=== PATIENT | male | born 1950 | race Caucasian/White ===

== ENCOUNTER 2024-04-05 10:49 | Inpatient (IN) | payer MEDICARE, SELFPAY ==
[2024-04-05] VITALS (10 sets, daily range): BP systolic 108–144; BP diastolic 71–97
[2024-04-05 08:27] LABS: Glucose - Point of Care 143 mg/dl (70-99)
--- NOTE | 2024-04-05 08:43 | ED.GENMED ---
History of Present Illness
General
Chief Complaint: Airway Problem
Source: patient and ambulance crew
Exam Limitations: clinical condition and altered mental status
Time Seen by Provider: 04/05/24 08:39
Nursing documentation reviewed up to this point in time: agreed with
History of Present Illness
History of Present Illness:
74 male presents with presumed polypharmacy overdose apparently was found confused by his obtunded EMS was called empty bottles next to him apparently was awake enough to tell his that he took all the pills, there beta-blockers, doxepin,
other empty pill bottles when I evaluated the patient he was obtunded, breathing 4-6 times, pulse ox 76% on room air with dried vomit around his mouth, how long he was on the ground for or when he could have taken the pills
Per pharmacy calculations of missing pills and when he filled the bottles patient possibly took #57 1 mg clonazepam, 50 mg #222 metoprolol ER, clonidine 0.1 mg #40 to #50 tablets, doxepin 25 mg approximately #90
Past History
Past History
ED Past Medical History: HTN, Hypercholesterolemia, Psychiatric (Rajiv. depression, posttraumatic stress disorder), Other (Herniated lumbar disc, obstructive sleep apnea) and Other (Recurrent syncope related to orthostatic hypotension.)
ED Past Surgical History: Cardiac (Pacemaker for bradycardia)
Social History
Tobacco: Non-smoker
Alcohol: None
Personal:
Living: with family
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
Family History
Family History: Hypertension
Review of Systems
Review of Systems
Other source history: ambulance crew
All Other Systems: Not applicable
Psychiatric: Reports suicidal (? Presumed)
Phy Exam
Physical Exam
Physical Exam:
Physical Exam
General: Obtunded elderly male shallow respirations dried vomit around his mouth
Neck: No tongue bite no airway obstruction
Heart: Rate
Lungs: Rhonchi on the left
Abdomen: Soft
Neuro: Nonverbal minimally responsive pupils 2 mm OU
Skin: no rash
Psychiatric: Unable to
Extremities: Cyanosis is.
Course
Orders/Labs/Results
Orders:
Orders
04/05/24 08:31
Sodium Bicarbonate 50 meq .ROUTE .STK-MED ONE
04/05/24 08:33
Propofol 1,000,000 Mcg/100 ml [Diprivan] 1,000,000 mcg in 100 ml .ROUTE .STK-MED
04/05/24 08:39
Propofol 1,000,000 Mcg/100 ml [Diprivan] 1,000,000 mcg in 100 ml IV NOW
Indication:: Light Sedation
Begin Infusion:: Now
Goal:: RASS 0 to -2
Maximum dose in mcg/kg/min:: 50
Initial dose based on RASS:: Yes
If RASS is:: +1 or pt hemodynamically unstable (SBP < 90mmHg), initiate at 10 mcg/kg/min
If RASS is:: +2, initiate at 20 mcg/kg/min
If RASS is:: greater than or equal to +3, initiate at 30 mcg/kg/min
Titration Instructions:: Titrate by 5-10 mcg/kg/min every 5 minutes until RASS 0 to -2 achieved.
Taper Instructions:: If RASS is at or below goal for 4 consecutive hours decrease infusion by
Taper Instructions:: 5-10 mcg/kg/min every 2 hours to off.
Over-sedation Instructions:: If CPOT 0-2 (at goal) AND RASS -3 to -5 (below goal) decrease sedative by
Over-sedation Instructions:: 50% first. If pain score remains at goal and RASS remains below goal in
Over-sedation Instructions:: 1 hour, decrease opioid infusion by 50%.
Notify provider:: immediately if patient exhibits signs/symptoms of propofol-related
Notify provider:: infusion syndrome.
Additional Instructions:: Patient MUST be mechanically ventilated and MUST receive analgesia.
CR Chest Portable - 1 View Urgent
Comment:
Reason For Exam: tube
Reason Study Needs to be Portable: Unable to Transport
04/05/24 08:40
Electrocardiogram (*1) Urgent
Reason for Study: QTc Monitoring
Bedside Glucose- Treatment ONCE
EKG- Treatment ONCE
Restraints - Non Violent As Directed
Justification-Patient:: 1-Attempts to remove tube
Restraint Type-: Soft Limb-4 point/4 rails
Apply From (date): 04/05/24
Apply from (time): 08:40
Remove (date): 04/06/24
Remove (time): 23:59
04/05/24 08:41
Lobo Placement- Treatment ONCE
Reason for insertion: I&O's Critical Care
Sodium Bicarbonate 50 meq IV NOW STA
04/05/24 08:[address] Non Medication Order As Directed
Physician Order: ngt or ogt thanks
Above order entered?: Yes
04/05/24 08:43
CT Head W/o Iv Contrast Urgent
Comment:
Reason For Exam: od anoxia
Ventilator Initial Settings [RESP] Urgent
04/05/24 08:45
CT Cervical Spine W/o Iv Contr Urgent
Comment:
Reason For Exam: found down
04/05/24 08:52
ABG [Arterial Blood Gas] Urgent
%Oxygen/Room Air: 100
Acetaminophen Urgent
Alcohol Urgent
Complete Blood Count/With Diff Urgent
Comprehensive Metabolic Panel Urgent
Creatine Phosphokinase Routine
Salicylate Urgent
Triglycerides Routine
Comment: baseline levels with propofol infusion
04/05/24 09:04
Charcoal/Sorbitol Solution [Actidose with Sorbitol] 25 grams PO NOW STA
04/05/24 09:15
Sterile Water For Inj [Sterile Water For Injection 1000 ml] 1,000 ml Sodium Bicarbonate 150 meq IV 200 mls/hr
04/05/24 09:27
Urine Drug Abuse Screen Urgent
Date Specimen was Collected: 04/05/24
Time Specimen was Collected: 08:51
04/05/24 09:30
Sterile Water For Inj [Sterile Water For Injection 1000 ml] 1,000 ml Sodium Bicarbonate 150 meq IV 200 mls/hr
04/05/24 09:37
Warm [Thermal Regulation-Treatment] ONCE
Mode:: Automatic
Type of thermoregulation:: Heating
PATIENT'S Goal Temperature:: 96.8 F (36 C)
Comments/Additional Instructions:: Temperature and skin assessment per unit protocol
04/05/24 09:55
CR Chest Portable - 1 View Urgent
Comment:
Reason For Exam: ngtg placement
Reason Study Needs to be Portable: Patient Unstable
04/05/24 Lunch
NPO
Allow oral meds: No
Allow clear liquids: No
04/05/24 10:25
Comprehensive Metabolic Panel Urgent
Magnesium Urgent
04/05/24 10:33
Admit/Transfer Patient As Directed
Co-Sign Provider:
Level of Care: Inpatient admission
Assign to:: ICU
Physician / Group: Vilma Hester - Hospitalists
Diagnosis: VDRF, drug overdose, ERIC
Reason for Hospitalization: Acute pharmaceutical drug overdose (Doxepin, Metoprolol, clonazepam, clonidine)
ERIC with rhabdomyolysis from prolonged immobility, possibly drug induced
rhabdomyolysis
Obtunded presentation, respiratory depression, leading to VDRF
Expected length of stay greater than two midnights?: Yes
ELOS- Estimated Length of Stay in days: 3
I certify the patient meets the requirements for IP care: Yes
PRN Pain Medication Management As Directed
May give lesser potent ordered pain med per pt: Yes
preference::
Protocol:: Medication orders for pain may be administered in a
manner that supports deferring to patient preference
when the pt is:
- Requesting an ordered lesser potent pain medication.
Least to most potent pain medications are defined
as: acetaminophen < NSAID < tramadol < opioids
(morphine, oxycodone, hydromorphone).
- Requesting a lesser dose of the same medication IF
ORDERED.
- Requesting a less intrusive route of administration
if both routes are prescribed by the provider (PO <
IV).
04/05/24 10:34
Code Status As Directed
Resuscitation Status: Full Code
04/05/24 11:06
CMP [Comprehensive Metabolic Panel] Q2H
Magnesium Q2H
Venous Blood Gas Q2H
%Oxygen/Room Air: fio2 40%, vented
04/05/24 11:06
Consult Outpatient Therapist [Outpatient Therapist Consult] Routine
Consulting Provider: Mando Dent
Was physician already notified: Yes
Bisacodyl [Dulcolax] 10 mg RECTAL [id number] PRN
Dextrose 5%/Water 1000 ml [D5w] 1,000 ml Sodium Bicarbonate 150 meq IV 100 mls/hr
Docusate W/Senna [Senokot-S] 1 tablet PO BIDPRN PRN
Polyethylene Glycol Powder [Miralax] 17 grams PO DAILYPRN PRN
Activity As Directed
Activity Level: As Tolerated
Intake/ Output As Directed
Frequency: q12h
Pneumatic Compression Sleeves As Directed
Type: Knee high
Vital Signs As Directed
Frequency: Per unit guidelines
Weight As Directed
Frequency: Daily
DX Deep Vein Thrombosis Video Routine
04/05/24 13:06
CMP [Comprehensive Metabolic Panel] Q2H
Magnesium Q2H
Venous Blood Gas Q2H
%Oxygen/Room Air: fio2 40%, vented
04/05/24 13:30
CPK [Creatine Phosphokinase] Routine
04/05/24 15:06
CMP [Comprehensive Metabolic Panel] Q2H
Magnesium Q2H
Venous Blood Gas Q2H
%Oxygen/Room Air: fio2 40%, vented
04/05/24 17:06
CMP [Comprehensive Metabolic Panel] Q2H
Magnesium Q2H
Venous Blood Gas Q2H
%Oxygen/Room Air: fio2 40%, vented
04/05/24 19:06
CMP [Comprehensive Metabolic Panel] Q2H
Magnesium Q2H
Venous Blood Gas Q2H
%Oxygen/Room Air: fio2 40%, vented
04/05/24 21:06
CMP [Comprehensive Metabolic Panel] Q2H
Magnesium Q2H
Venous Blood Gas Q2H
%Oxygen/Room Air: fio2 40%, vented
04/05/24 23:06
CMP [Comprehensive Metabolic Panel] Q2H
Magnesium Q2H
Venous Blood Gas Q2H
%Oxygen/Room Air: fio2 40%, vented
04/06/24 01:06
CMP [Comprehensive Metabolic Panel] Q2H
Magnesium Q2H
Venous Blood Gas Q2H
%Oxygen/Room Air: fio2 40%, vented
04/06/24 03:06
CMP [Comprehensive Metabolic Panel] Q2H
Magnesium Q2H
Venous Blood Gas Q2H
%Oxygen/Room Air: fio2 40%, vented
04/06/24 05:06
CMP [Comprehensive Metabolic Panel] Q2H
Magnesium Q2H
Venous Blood Gas Q2H
%Oxygen/Room Air: fio2 40%, vented
04/06/24 06:00
Complete Blood Count/With Diff IN AM
Comprehensive Metabolic Panel IN AM
Creatine Phosphokinase IN AM
Magnesium IN AM
04/07/24 06:00
Complete Blood Count/With Diff IN AM
Comprehensive Metabolic Panel IN AM
Creatine Phosphokinase IN AM
Magnesium IN AM
04/08/24 06:00
Complete Blood Count/With Diff IN AM
Comprehensive Metabolic Panel IN AM
Creatine Phosphokinase IN AM
Magnesium IN AM
Abnormal Lab Results
04/05/24 04/05/24 04/05/24
08:26 08:52 09:27
WBC 12.8 H 10^3/uL
(4.8-10.8)
MCHC 32.8 L g/dL
(33.0-37.0)
RDW 15.7 H %
(11.5-14.5)
Abs Immat Gran (auto) 0.1 H 10^3/uL
(0-0.05)
Absolute Neuts (auto) 10.8 H 10^3/uL
(1.4-6.5)
Absolute Lymphs (auto) 0.7 L 10^3/uL
(1.2-3.4)
Absolute Monos (auto) 1.0 H 10^3/uL
(0.1-0.6)
Immature Gran % 0.7 H %
(0-0.5)
Neutrophils % 85.0 H %
(42.2-75.2)
Lymphocytes % 5.7 L %
(20.5-51.1)
ABG O2 Sat (Measured) 98.7 H %
(94-98)
BUN 22 H mg/dl
(9-20)
Creatinine 1.5 H mg/dL
(0.7-1.3)
Glucose 166 H mg/dl
(70-99)
AST 71 H U/L
(17-59)
Creatine Kinase 1469 H U/L
(55-170)
Salicylates < 1.0 L mg/dl
(2.0-20.0)
Acetaminophen < 10 L ug/ml
(10-30)
Ur Tricyclics Screen Positive H
(Negative)
POC Glucose 143 H mg/dl
(70-99)
04/05/24
10:25
WBC
MCHC
RDW
Abs Immat Gran (auto)
Absolute Neuts (auto)
Absolute Lymphs (auto)
Absolute Monos (auto)
Immature Gran %
Neutrophils %
Lymphocytes %
ABG O2 Sat (Measured)
BUN 24 H mg/dl
(9-20)
Creatinine 1.4 H mg/dL
(0.7-1.3)
Glucose 167 H mg/dl
(70-99)
AST 69 H U/L
(17-59)
Creatine Kinase
Salicylates
Acetaminophen
Ur Tricyclics Screen
POC Glucose
04/05/24 08:52
04/05/24 10:25
Vital Signs
Initial and Last Documented VS:
Initial Vital Signs
Pulse Resp Pulse Ox
70 18 99
04/05/24 08:33 04/05/24 08:33 04/05/24 08:33
Last Documented Vital Signs
Temp Pulse Resp BP Pulse Ox
94.9 F L 61 14 117/76 90
04/05/24 09:56 04/05/24 10:30 04/05/24 10:30 04/05/24 10:30 04/05/24 10:30
Procedures
Intubations
Procedure completed by: francisca
Method of Intubation: curved blade
Tube size (cm): 7.5
Placement confirmed by: auscutation and capnography
Breath sounds after intubation: equal and right greater than left
Intubation complications: no complications
Additional information:
Rapid sequence succinylcholine, premedicated with bicarb due to concern for TCA overdose mild QRS widening on EKG
Other
Indication for procedure:: GI decontamination
Procedure completed by: Francisca
If no, reason: Emergency procedure
Additional Procedure:
16 Irish NG tube placed without difficulty will confirm with x-ray positive air
MDM/Problems Addressed
Differential Diagnosis Includes:
Overdose aspiration occult head trauma rhabdo other
MDM/Problems Addressed:
Mental status change presumed overdose
Chronic conditions affecting care: HTN and Psychiatric illness
Acute Exacerbation and/or Progression of Chronic Illness: HTN and Psychiatric illness
*Radiology
Radiology exam reviewed: preliminary read by ED provider
*Pulse Oximetry
Patient hypoxic: yes
Comment: 76
*EKG
Interpreted by ED Provider?: Yes
Interpretation: normal
Comparison EKG: no comparison EKG present
Heart Rate: 78
Rate: normal
Rhythm: sinus
[place]: normal axis
Ischemia: non-specific ST changes
*Undergraduate Internship Interpretation
Rate: normal
Interpretation: normal
Heart Rate: 78
Rhythm: sinus
*Critical Care Note
Total Time (30-74mins, 75-104mins- exclusive of procedures): 35
Update Note
Update Note:
Update intubated for airway protection, check CT of the head cervical spine for occult trauma will try to confirm with meds he is on supportive care at this time
CRITICAL CARE STATEMENT: A total of 35minutes of critical care time was provided for this patient. This includes management of unstable vital signs, evaluation of the patient at bedside, reviewing the patient's pertinent medical records discussion
with EMS providers and patient's family in addition to discussion with consultants, review of old EKGs and review of pertinent medical records. This time with separate from time utilized to perform the aforementioned documented procedures
NG tube placed by myself
Call to [facility] Poison Control
next bag 150 bicarb in d5w wtih 40 K for next bag to keep 4 above 4, Mag above 2 goal ph 7.45-7.55, goal Na 145-155
q2 labs vbg, cmp
No Activated Charcoal, no WBI
They have accepted for transfer but not beds today
NE/Vasopressin/
if he codes, intralipid-100ml over 1-[address] Cole accepting MD at [facility],
Raquel updated
ED Attending Note
-
Portions of this chart may have been created with voice recognition software.� Occasional wrong word or��sound alike� substitutions may have occurred due to the inherent limitations of voice recognition software.
Discharge Plan
Departure
Patient Disposition: Admit
Date of Disposition: 04/05/24
Time of Disposition: 11:07
Admit to: ICU
Presentation/result/management discussed w/ accepting MD/DO: Hospitalist
Condition: Critical
Covid-19: Not Applicable
Discharge Problem:
Overdose
Interventions
Interventions:
*Risk Screen - Suicide Last Done: 04/05/24 08:33
*General Assessment Last Done: 04/05/24 08:33
*Neglect/Abuse Screening Last Done: 04/05/24 08:33
*ED COVID-19 Vaccine History Last Done: 04/05/24 08:33
*Nursing Disposition Last Done: 04/05/24 09:40
ED- Pulmonary Assessment Last Done: 04/05/24 08:55
[2024-04-05] MEDS: SODIUM BICARBONATE 50 MEQ IV (08:49)
[2024-04-05] MEDS: DIPRIVAN 100 IV (08:50)
--- NOTE | 2024-04-05 08:50 | PHANOTE ---
med rec note- patient comes from home, ems stated patient all of his medication. patient comes in with bottles
venlafaxine er capsules 60 capsules of 150mg filled on 04/03/24
empty bottles of clonazpem 1mg filled 03/31/24 and 03/29/24 each should of had 30 tablets only 3 tablets in one bottle consumed 57 tablets
empty bottle doxepin 25mg daily filled 12/15/23 for 90 capsules
empty clonidine 0.1mg bid filled 03/10/24 for 180 tablets consumed about 48-50 tablets.
empty toprol xl 50mg tid filled 03/21/24 for 270 tablets consumed 222 tablets
[2024-04-05 09:07] LABS: % Basophils 0.2 % (0-2); % Eosinophils 0.3 % (0-6); % Immature Granulocytes 0.7 % (0-0.5); % Lymphocytes 5.7 % (20.5-51.1); % Monocytes 8.1 % (1.7-9.3); Absolute Immature Granulocytes 0.1 10^3/uL (0-0.05); Absolute Lymphocytes 0.7 10^3/uL (1.2-3.4); Absolute Neutrophils 10.8 10^3/uL (1.4-6.5); Hematocrit 41.5 % (39.0-52.0); Hemoglobin 13.6 g/dL (13.0-18.0); Mean Corp Hgb Conc. 32.8 g/dL (33.0-37.0); Mean Corpuscular Hgb 27.6 pg (27.0-31.0); Mean Corpuscular Volume 84.2 fL (80.0-94.0); Nucleated Red Blood Cells % 0 % (-); Red Blood Cell Count 4.93 10^6/uL (4.70-6.10); Red Cell Dist. Width 15.7 % (11.5-14.5); White Blood Cell Count 12.8 10^3/uL (4.8-10.8)
[2024-04-05 09:08] LABS: B.E. -1.8 mmol/L; HCO3 23.7 mmol/L (21-28); O2 Saturation % 98.7 % (94-98); PCO2 42 mmHg (35-48); PO2 102 mmHg (83-108); pH 7.36 (7.35-7.45)
[2024-04-05 09:16] LABS: ALT (SGPT) 38 U/L (0-50); AST (SGOT) 71 U/L (17-59); Acetaminophen < 10 ug/ml (10-30); Albumin 4.1 g/dl (3.5-5.0); Alkaline Phosphatase 59 U/L (38-126); Blood Urea Nitrogen 22 mg/dl (9-20); Calcium 9.5 mg/dl (8.4-10.2); Carbon Dioxide 22 mmol/L (22-30); Chloride 105 mmol/L (98-107); Creatine Phosphokinase 1469 U/L (55-170); Glucose 166 mg/dl (70-99); Potassium 4.1 mmol/L (3.5-5.1); Salicylate < 1.0 mg/dl (2.0-20.0); Sodium 138 mmol/L (135-145); Total Bilirubin 1.3 mg/dl (0.2-1.3); Total Protein 6.6 g/dl (6.3-8.2); Triglycerides 132 mg/dl (10-149); eGFR 49.16
[2024-04-05 09:19] LABS: Alcohol None Detected
[2024-04-05] MEDS: SODIUM BICARBONATE 1150 MEQ IV ×2 (09:29→09:32)
--- NOTE | 2024-04-05 10:12 | HPS.HSE ---
Family Physician
-
Family Physician: NO INTERVIEW UNKNOWN
Chief Complaint
-
pharmaceutical drug overdose
History of Present Illness
74 y/o M hx of HTN, HLD, psychiatric history including major depression, PTSD, KYLER, orthostasis brought in my EMS for obtunded state. He was found confused by his and empty bottles were noticed nearby. He was awake at that time to tell he
overdose on Clonazepam, Metoprolol, Clonidine and Doxepin (reported ~60 tabs, 200 tabs, 40 tabs, 90 tabs of each pill respectively per pharmacy calculations). In ER, patient obtunded with shallow depressed breathing and hypoxia to 76% with dry vomit
around his mouth. He was intubated immediately.
[facility] poison control was contacted and recommended bicarb IVF, maintain K and mag levels, pH ph 7.45-7.55, goal Na 145-155 and to monitor labs serially q2h (VBG, CMP). They did not recommend whole bowel irrigation or charcoal
They also stated if patient were to CODE use intralipid 100 ML and for pressors use NE or Vasopressin.
Medical History
Past Medical History
Past Medical History: Reports Other (HTN, HLD, psychiatric history including major depression, PTSD, KYLER, orthostasis)
Past Surgical History: Reports Other (Pacemaker for bradycardia)
Social History
Tobacco: Non-smoker
Alcohol: None
Personal:
Living: With Family
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
Family History
Family History: Not pertinent
Allergies / Home Medications
Allergies reflects when Allergies were last updated in [employer].
Home Medications with original date entered in [employer]
Allergy/Medication List:
Allergies
Allergy/AdvReac Type Severity Reaction Status Date / Time
No Known Allergies Allergy Verified 02/21/14 05:12
Home Medications
metoprolol succinate 25 mg tablet,extended release 24 hr (Toprol XL) 100 mg PO QPM 02/21/14
amlodipine 10 mg tablet (Norvasc) 10 mg PO DAILY 04/05/24
atorvastatin 80 mg tablet (Lipitor) 80 mg PO QPM 04/05/24
clonazepam 1 mg tablet 2 mg PO BIDPRN PRN anxiety 04/05/24
clonidine HCl 0.1 mg tablet 0.1 mg PO BID 04/05/24
dapagliflozin propanediol 10 mg tablet (Farxiga) 10 mg PO DAILY 04/05/24
doxepin 25 mg capsule 25 mg PO HS 04/05/24
fenofibrate 160 mg tablet 160 mg PO DAILY 04/05/24
metoprolol succinate 50 mg tablet,extended release 24 hr (Toprol XL) 50 mg PO DAILY 04/05/24
tamsulosin 0.4 mg capsule (Flomax) 0.8 mg PO HS 04/05/24
venlafaxine 150 mg capsule,extended release 24 hr (Effexor XR) 300 mg PO DAILY 04/05/24
Review of Systems
-
Unable to obtain full review of systems at this time due to: Patient Intubation
Physical Exam
Vital Signs
Vital Signs
Temp Pulse Resp BP Pulse Ox
94.9 F L 65 13 108/73 94
04/05/24 09:56 04/05/24 09:45 04/05/24 09:45 04/05/24 09:30 04/05/24 09:45
Physical Exam
General: Intubated
HEENT: NormoCephalic and Anicteric
Respiratory: Clear
Cardiac: S1/S2 and Regular Rhythm
GI: Soft
Neuro: Sedated
Laboratory Results
-
04/05/24 08:52
04/05/24 08:52
Laboratory Results
pH 7.36 (7.35-7.45) 04/05/24 08:52
pCO2 42 mmHg (35-48) 04/05/24 08:52
pO2 102 mmHg (83-108) 04/05/24 08:52
HCO3 23.7 mmol/L (21-28) 04/05/24 08:52
Total Bilirubin 1.3 mg/dl (0.2-1.3) 04/05/24 08:52
AST 71 U/L (17-59) H 04/05/24 08:52
ALT 38 U/L (0-50) 04/05/24 08:52
Alkaline Phosphatase 59 U/L (38-126) 04/05/24 08:52
Data Reviewed
-
Lab Data: Labs Reviewed by me
Impression/Plan
-
Assessment:
Acute pharmaceutical drug overdose (Doxepin, Metoprolol, clonazepam, clonidine)
ERIC with rhabdomyolysis from prolonged immobility, possibly drug induced rhabdomyolysis
Obtunded presentation, respiratory depression, leading to VDRF
Essential HTN
HLD
psychiatric history including major depression, PTSD
YKLER
orthostasis
Plan:
Case discussed with ER Dr Martinez who spoke to [facility] poison control service. Patient accepted in transfer, pending bed availability. Dr. Martinez will provide attending name.
in the interim:
Admit to ICU here with ICU consult
per poison control; start Bicarbonate 150 in D5W with 40 K, keep K and Mag >2. Na goal is 145-155.
serial CMP, Mag and VBG q2h - goal pH 7.45 to 7.55.
repeat CPK this afternoon.
Lobo and monitor urine output.
No role for activated charcoal or whole body irrigation.
if pressors indicated, use Norepi or Vasopressin.
if cardiac arrest, use intralipid-100ml over 1-2 minutes - will have to confirm with pharmacy if available.
all home meds held.
tried to call , phone disconnected.
presumed full code for now pending family discussion.
Total Critical Care Time 90 minutes. I was immediately available to the patient and staff. I personally examined, reviewed labs, diagnostic images/reports, interpretations, treatment plans, discussed patient care with other providers and family
or caregivers (if patient is unable to make decisions), entered orders as appropriate and documented the medical record.
[2024-04-05 10:20] LABS: Amphetamines Negative (Negative); Tricyclic Antidepressants Positive (Negative)
[2024-04-05 10:21] LABS: Barbiturates Negative (Negative); Benzodiazepines Negative (Negative); Buprenorphine Negative (Negative); Cocaine Negative (Negative); Marijuana Negative (Negative); Methadone Negative (Negative); Methamphetamines Negative (Negative); Opiates Negative (Negative); Phencyclidine Negative (Negative)
[2024-04-05 10:56] LABS: ALT (SGPT) 39 U/L (0-50); AST (SGOT) 69 U/L (17-59); Alkaline Phosphatase 50 U/L (38-126); Blood Urea Nitrogen 24 mg/dl (9-20); Calcium 9.4 mg/dl (8.4-10.2); Carbon Dioxide 25 mmol/L (22-30); Chloride 102 mmol/L (98-107); Glucose 167 mg/dl (70-99); Magnesium 1.9 mg/dl (1.6-2.3); Potassium 3.9 mmol/L (3.5-5.1); Sodium 136 mmol/L (135-145); Total Bilirubin 1.2 mg/dl (0.2-1.3); Total Protein 6.5 g/dl (6.3-8.2)
[2024-04-05 11:45] LABS: Glucose - Point of Care 154 mg/dl (70-99)
--- NOTE | 2024-04-05 12:15 | PTCARENOTE ---
Pt arrived to ICU. Unresponsive. Pinpoint pupils. Core temp 93.1F. Deepa hugger in place. Propofol gtt received @ 20 mcg/kg/min and turned off; pt remains unresponsive. ETT # 7.5 @ 23cm to right lip. AC (14/550/40%/5+). SaO2 96%. Sinus rhythm with
1st degree AV block on athletic monitor. HR 60. MAP > 65 without pressors. OGT in place with light brown output. Lobo catheter exchanged for temp sensing with urimeter. Bicarb gtt ingusing @ 200ml/hr. Transfer to [facility] accepted. Report
called to [facility] for transport to [facility] Room 2K5. Pt transported by [facility] to [facility].
== END 2024-04-05 12:11 | disposition short-term general hospital (02) | DRG 917 ==
LOC: ICU 10:49
PROVIDERS: ADMITTING PHYSICIAN Internal Medicine; EMERGENCY PHYSICIAN Emergency Medicine
PROC: 5A1935Z Respiratory Ventilation, Less than 24 Consecutive Hours (ICD-10-PCS; 2024-04-05)
PROC: 0BH17EZ Insertion of Endotracheal Airway into Trachea, Via Natural or Artificial Opening (ICD-10-PCS; 2024-04-05)
DX: T42.4X2A Poisoning by benzodiazepines, intentional self-harm, initial encounter (principal); J96.91 Respiratory failure, unspecified with hypoxia; N17.9 Acute kidney failure, unspecified; M62.82 Rhabdomyolysis; T44.7X2A Poisoning by beta-adrenoreceptor antagonists, intentional self-harm, initial encounter; T46.5X2A Poisoning by other antihypertensive drugs, intentional self-harm, initial encounter; T43.012A Poisoning by tricyclic antidepressants, intentional self-harm, initial encounter; I10 Essential (primary) hypertension; E78.00 Pure hypercholesterolemia, unspecified; G47.33 Obstructive sleep apnea (adult) (pediatric); F43.10 Post-traumatic stress disorder, unspecified; F32.9 Major depressive disorder, single episode, unspecified; I95.1 Orthostatic hypotension; Z95.0 Presence of cardiac pacemaker
CPT/HCPCS: 31500; 43752; 51702; 70450; 71045; 72125; 80053; 80143; 80179; 80306; 82077; 82550; 82805; 82962; 83735; 84478; 85025; 93005; 94002; 96365; 96366; 96375; 99291